=== PATIENT | female | born 1985 ===

== ENCOUNTER 2018-04-19 21:32 | Emergency (ER) | payer OTHER ==
[2018-04-19 21:57] VITALS: BMI 31.5
[2018-04-20 03:01] VITALS: BP 99/51; PULSE 88; RESP 18; TEMP 98.1
--- NOTE | 2018-04-20 19:26 | OBHP ---
Datetime: 04/19/2018 22:28 IP Adm Impression: , intrauterine IP Admit Plan: Observation/Evaluation; Discharge home Admit Comment, IP Provider: 33-year-old with IUP @ 36+3 weeks (confirmed by JOSÉ LUIS 05/14/17) pr esents to ANGY with complaints of contractions. Patient is unable to state how frequent they are and reports this started this morning. She denies vaginal bleeding, loss of fluid. Reports good mo vement. She follows with Jonnathan Powers and her last appointment was Sunday where she was 1cm dilated. Denies chest pain, shortness of breath, fevers, dysuria, chills, nausea and vomiting. ROS: all others negative unless indicated in HPI. PMH: Denies Family Hx: Denies Social: Denies tob, EtOH, drugs Surg Hx: Denies Allergies: Denies Meds: PNV Labs: not provided PE: in no acute stress, lying comfortably in bed CV: RRR, no murmurs Respiratory: Bilateral air entry, no wheezes Abdomen: no tenderness to palpations Extremities: no peripheral edema Pelvic: Cook Morning present- Dr. Negro. 1 cm, 30%, -3 FHT: reassuring- 140 baseline; Moderate variability; Accelerations present. No decelerations. Maryann guzman 1 tracing. Assessment and Plan: 33-year-old with IUP @ 36+3 weeks (confirmed by JOSÉ LUIS 05/14/17) present s to ANGY with complaints of contractions found to have unchanged cervical exam from Sunday. - Tylenol 650 po stat for pain. -Continous monitoring -Category I tracing - Patient given labor precautions and is stable for discharge at this time given her unchanged cer vical exam. Case discussed with Dr. Collins and Dr. Negro ----Tegan Renae, PGY1 Family Medicine Attending Note: patient was discussed with resident and I Agree with the above. Pelvic Type - PN: Adequate Extremities - PN: Normal Abdomen - PN: Normal Back - PN: Normal Breast - PN: Normal Lungs - PN: Normal Heart - PN: Normal Thyroid - PN: Not Done Neurologic - PN: Not Done HEENT - PN: Not Done General - PN: Normal FHR - Baseline A Provider: 140 EGA AdmitDate IP: 36.3 Vital Signs Provider: Reviewed; Within Normal Limits IP Chief Complaint: Uterine contractions; Maternal discomfort NICHD Variability Prov Fetus A: Moderate 6-25bpm NICHD Accel Fetus A IP Provider: [id number] FHR Category Provider Fetus A: Category I NICHD Decel Fetus A IP Provider: None Genitourinary Exam: Normal DTRs - PN: Not Done
== END 2018-04-19 22:45 | disposition home or self-care (01) ==
LOC: H.EROB2 21:32
DX: O26.93 Pregnancy related conditions, unspecified, third trimester (principal); R10.2 Pelvic and perineal pain; O47.03 False labor before 37 completed weeks of gestation, third trimester; Z3A.36 36 weeks gestation of pregnancy

== ENCOUNTER 2018-04-25 18:20 | Emergency (ER) | payer OTHER ==
[2018-04-25 19:54] VITALS: BMI 29.7
[2018-04-25 21:14] LABS: ALBUMIN 3.5 g/dL (3.5-5.0); ALT/SGPT 18 U/L (9-52); AST/SGOT 26 U/L (14-36); BLOOD UREA NITROGEN 3 mg/dl (7-17); GFR NON-AFRICAN AMERICAN > 60
[2018-04-25 21:55] LABS: SQUAMOUS EPITHIAL < 1 /hpf (0-5); URINE BACTERIA RARE (<OCC); URINE BILIRUBIN NEGATIVE (NEGATIVE); URINE BLOOD NEGATIVE (NEGATIVE); URINE CLARITY SLIGHTY-CLOUDY (Clear); URINE COLOR STRAW (YELLOW); URINE GLUCOSE (UA) NEG (Normal); URINE LEUKOCYTE ESTERASE NEG Leu/uL (Negative); URINE PROTEIN NEGATIVE (NEGATIVE); URINE UROBILINOGEN 0.2-1.0 mg/dL (0.2-1.0)
[2018-04-25] MEDS ORDERED: Lactated Ringer's 1,000 ML IV SCH ×2 (22:00→23:00)
[2018-04-25 22:27] LABS: BASO % 0.5 % (0.0-2.0); EOS # 0.1 K/uL (0.0-0.7); EOS % 1.6 % (0.0-4.0); HEMOGLOBIN 11.2 g/dL (12.0-16.0); LYMPH # 1.9 K/uL (1.0-4.3); LYMPH % 34.3 % (20.0-40.0); MEAN CELL VOLUME 83.2 fl (81.0-99.0); MEAN CORPUSCULAR HEMOGLOBIN 27.1 pg (27.0-31.0); MEAN CORPUSCULAR HGB CONC 32.5 g/dL (33.0-37.0); MEAN PLATELET VOLUME 8.8 fl (7.2-11.7); MONO # 0.6 K/uL (0.0-0.8); MONO % 10.7 % (0.0-10.0); NEUT # 2.9 K/uL (1.8-7.0); NEUT % 52.9 % (50.0-75.0); RBC 4.15 Mil/uL (3.80-5.20); RED CELL DISTRIBUTION WIDTH 16.3 % (11.5-14.5); WHITE BLOOD COUNT 5.5 K/uL (4.8-10.8)
[2018-04-26 11:40] VITALS: BP 138/88; PULSE 104; RESP 20; TEMP 98.5; O2SAT 100
== END 2018-04-26 01:00 | disposition home or self-care (01) ==
LOC: H.EROB2 18:20
DX: O26.93 Pregnancy related conditions, unspecified, third trimester (principal); R51 Headache; R11.0 Nausea; O26.853 Spotting complicating pregnancy, third trimester; Z3A.37 37 weeks gestation of pregnancy
CPT/HCPCS: 80053; 81003; 85025; 96360; 99283; J7120